=== PATIENT | male | born 1935 | race Caucasian/White ===

== ENCOUNTER 2019-11-17 11:18 | Day surgery (SDC) | payer MEDICARE ==
[~2019-11-17] VITALS: Ht 172.7 cm; Wt 82.4 kg
[2019-11-17] VITALS (12 sets, daily range): BP systolic 118–161; BP diastolic 46–81
[2019-11-17] MEDS ORDERED: diphenhydrAMINE 25mg capsule PO PRN (11:35)
[2019-11-17] MEDS ORDERED: normal saline 1,000 ML IV SCH (11:35)
[2019-11-17] MEDS ORDERED: ASPI81TA52 PO (12:34)
[2019-11-17] MEDS ORDERED: PRAV20TA4 PO (12:34)
[2019-11-17] MEDS ORDERED: POTA8CAP20 PO (12:34)
[2019-11-17] MEDS ORDERED: ISOS30TA6 PO (12:34)
[2019-11-17] MEDS ORDERED: CYAN250010 PO (12:34)
[2019-11-17] MEDS ORDERED: FURO-150 PO (12:34)
[2019-11-17] MEDS ORDERED: CHOL500061 PO (12:34)
[2019-11-17] MEDS ORDERED: METO-539 PO (12:34)
[2019-11-17] MEDS ORDERED: LOSA100T57 PO (12:34)
[2019-11-17] MEDS ORDERED: SYN0.088T PO (12:34)
[2019-11-17] MEDS ORDERED: LACT1CAP75 PO (12:34)
[2019-11-17] MEDS ORDERED: midazolam 2 mg/2 ml injection ONE ×3 (12:36→13:43)
[2019-11-17] MEDS ORDERED: fentaNYL/PF 50MCG/1 ML 2ML syringe ONE (12:36)
[2019-11-17] MEDS ORDERED: LIDOcaine 1% (10mg/ml)w/preservative injection 20ml MDV ONE (12:36)
[2019-11-17] MEDS ORDERED: iohexol 350MG/ML 100ml bottle IV ONE ×2 (12:37→13:31)
[2019-11-17] MEDS ORDERED: iohexol 350 MG/ML 50ML vial IV ONE ×2 (12:37→13:29)
[2019-11-17 12:42] LABS: ALBUMIN 3.8 G/DL (3.4-5.0); ANION GAP 10 (8-16); BLOOD UREA NITROGEN 27 MG/DL (7-18); BUN/CREATININE RATIO 22.1 (5.4-32.0); CALCIUM 9.6 MG/DL (8.5-10.1); CHLORIDE 107 MMOL/L (99-107); CREATININE 1.22 MG/DL (0.60-1.10); GLUCOSE 89 MG/DL (70-104); MAGNESIUM 1.7 MG/DL (1.5-2.4); POTASSIUM 5.5 MMOL/L (3.5-5.1); SODIUM 140 MMOL/L (135-145); TOTAL CARBON DIOXIDE 22.9 MMOL/L (24-32); eGFR 57 ML/MIN
[2019-11-17 12:45] LABS: BASOPHILS # (AUTO) 0.1 X10'3 (0-0.2); BASOPHILS % (AUTO) 1.3 % (0-1); EOSINOPHILS # (AUTO) 0.3 X10'3 (0-0.9); EOSINOPHILS % (AUTO) 4.2 % (0-6); HEMOGLOBIN 16.7 g/dl (14.0-17.9); LYMPHOCYTES # (AUTO) 2.5 X10'3 (1.1-4.8); LYMPHOCYTES % (AUTO) 32.1 % (21-51); MEAN CORPUSCULAR VOLUME 99.9 FL (78-98); MEAN PLATELET VOLUME 8.5 FL (7.4-10.4); MONOCYTES % (AUTO) 12.4 % (2-12); NEUTROPHILS # (AUTO) 3.9 X10'3 (1.8-7.7); PLATELET COUNT 225 X10'3 (140-440); RED BLOOD COUNT 4.91 X10'6 (4.70-6.10); RED CELL DISTRIBUTION WIDTH 13.9 % (11.5-14.5); WHITE BLOOD COUNT 7.9 X10'3 (4.5-11.0)
[2019-11-17] MEDS ORDERED: heparin 1,000unit/ml 10ml vial 10 ML ONE (13:32)
[2019-11-17] MEDS ORDERED: hydrALAZINE 20mg/ml inj. IV ONE (13:47)
[2019-11-17] MEDS ORDERED: ticagrelor 90mg tablet ONE (13:55)
[2019-11-17] MEDS ORDERED: furosemide 40mg/4ml inj IV ONE (15:40)
[2019-11-17] MEDS ORDERED: potassium Cl 20 mEq SR tablet PO ONE (15:40)
[2019-11-17] MEDS ORDERED: albuterol 2.5 MG/3 ML nebule NEB PRN (15:55)
== END 2019-11-17 20:00 | disposition home or self-care (01) ==
LOC: SSTAY O 11:18
PROVIDERS: ATTEND Internal Medicine Cardiovascular Disease
DX: R94.39 Abnormal result of other cardiovascular function study (principal); I25.10 Atherosclerotic heart disease of native coronary artery without angina pectoris; R07.9 Chest pain, unspecified; Z79.899 Other long term (current) drug therapy; I10 Essential (primary) hypertension; J44.9 Chronic obstructive pulmonary disease, unspecified; E78.5 Hyperlipidemia, unspecified; F17.200 Nicotine dependence, unspecified, uncomplicated
CPT/HCPCS: 36415; 80048; 83735; 85025; 85610; 93458; 93571; 94640; 99152; 99153; C1769; C1874; C1894; C9600; J0360; J1644; J1940; J2001; J2250; J3010; Q0163; Q9967; 94760; A4620; A6258; C1751; C1760